=== PATIENT | female | born 1990 | race American Indian/Alaskan Native ===

== ENCOUNTER 2017-01-27 08:19 | Outpatient (CLI) | payer MEDICAID ==
[2017-01-27] MEDS ORDERED: LACTATED RINGERS 500 ML IV ONE (08:36)
[2017-01-27 08:44] VITALS: BP 112/74
[2017-01-27 08:50] LABS: Bacteria,Urine 1+ /HPF (Negative); Bilirubin,Urine NEG (Negative); Blood,Urine NEG (Negative); Ketones,Urine NEG (Negative); Leukocyte Esterase,Urine SM (Negative); Nitrite,Urine NEG (Negative); Protein,Urine <15 mg/dL mg/dL (Negative); Urobilinogen,Urine < 2.0 mg/dL (<2.0)
== END 2017-01-27 09:40 | disposition home or self-care (01) ==
LOC: TRG 08:19
PROVIDERS: ATTEND Obstetrics & Gynecology
DX: O47.03 False labor before 37 completed weeks of gestation, third trimester (principal); Z3A.36 36 weeks gestation of pregnancy
CPT/HCPCS: 81001

== ENCOUNTER 2017-02-10 00:25 | Inpatient (IN) | payer MEDICAID ==
[2017-02-10] MEDS ORDERED: ZOFRAN IV PRN (01:20)
[2017-02-10] MEDS ORDERED: SUBLIMAZE IV PRN (01:20)
[2017-02-10] MEDS ORDERED: BRETHINE SUB-Q PRN (01:20)
[2017-02-10] MEDS ORDERED: POLYCILLIN/NS 2 GM/100 ML 2 GM/100 ML BAG IV ONE (01:20)
[2017-02-10] MEDS ORDERED: XYLOCAINE 2% INFILTRATI ONE (01:20)
[2017-02-10] MEDS ORDERED: MINERAL OIL PO PRN (01:20)
[2017-02-10] MEDS ORDERED: ePHEDrine SULFATE IV PRN ×2 (01:20→03:21)
--- NOTE | 2017-02-10 01:27 | History and Physical Report ---
History of Present Illness Date of examination: 02/10/17 (pt arrived to Triage in active labor) History of present illness: EDC Calculations LMP: 02/18/2017 EDC Confirmation: 02/18/2017 Gestational Age: 6 5/7 weeks Past History : 2 Term Births: 1 Premature Births: 0 Living Children: 1 Para: 1 Elect. Ab: 0 Spont. 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 of genital herpes: no Partner hx. of genital herpes: no Rash, Viral, or Febrile illness since last LMP? no Varicella/Chicken Pox Status: Unknown TB Risk: no Genetic History Congenital Heart Defect: Mom: no Dad: no Vilma Disease: Mom: no Dad: no Thalassemia Mom: no Dad: no Neural Tube Defect Mom: no Dad: no Down's Syndrome Mom: no Dad: no Thomas-Sachs Mom: no Dad: no Sickle Cell Disease/Trait Mom: no Dad: no Hemophilia Mom: no Dad: no Muscular Dystrophy Mom: no Dad: no Cystic Fibrosis Mom: no Dad: no [place] Chorea Mom: no Dad: no Mental Retardation Mom: no Dad: no Fragile X Mom: no Dad: no Other Genetic/Chromosomal Disorder Mom: no Dad: no Child w/other defect Mom: no Dad: no Enviromental Exposures Xray Exposure: no Medication, drug, or alcohol use since LMP: no Chemical/Other Exposure: no Exposure to Cat Liter: no Hx of Parvovirus (Fifth Disease): no Occupational Exposure to Children: none Active Medications: TRI-SPRINTEC 0.18/0.215/0.25 MG-35 MCG TABS (NORGESTIM-ETH ESTRAD TRIPHASIC) 1 tab po q day Current Allergies: No known allergies Laboratory Results Date/Time Collected: 06/30/2016 Routine Urinalysis Leukocytes: negative Nitrite: negative Urobilinogen: negative Protein: Negative Blood: negative Ketone: negative Bilirubin: negative Glucose: Negative Urine HCG: positive Review of Systems General Denies fever, chills, sweats, anorexia, fatigue, weakness, malaise, weight loss and sleep disorder. Denies nausea, vomiting, headache, swelling of legs, abdominal pain, vaginal discharge, vaginal bleeding and contractions. Denies vaginal discharge, incontinence, dysuria, hematuria, urinary frequency, amenorrhea, menorrhagia, abnormal vaginal bleeding, pelvic pain, genital sores, decreased libido, painful periods, painful sex, urinary urgency, hot flashes, vaginal dryness, vaginal itching and vaginal odor. CV Denies chest pains, palpitations, syncope, dyspnea on exertion, orthopnea, PND and peripheral edema. Resp Denies cough, dyspnea at rest, excessive sputum, hemoptysis, wheezing and pleurisy. GI Denies nausea, vomiting, diarrhea, constipation, change in bowel habits, abdominal pain, melena, hematochezia, jaundice, gas/bloating, indigestion/ heartburn, dysphagia and odynophagia. Endo Denies cold intolerance, heat intolerance, polydipsia, polyphagia, polyuria and unusual weight change. Breast Denies left breast lump, right breast lump, nipple discharge, bloody discharge from nipple, breast pain, abnormal mammogram and breast enlargement. MS Denies back pain, joint pain, joint swelling, muscle cramps, muscle weakness, stiffness, arthritis, sciatica, restless legs, leg pain at night and leg pain with exertion. Derm Denies rash, itching, dryness and suspicious lesions. Neuro Denies paralysis, paresthesias, headache, seizures, tremors, vertigo, transient blindness, frequent falls, frequent headaches and difficulty walking. Psych Denies depression, anxiety, irritability and mood swings. Eyes Denies blurring, diplopia, irritation, discharge, vision loss, eye pain and photophobia. ENT Denies earache, ear discharge, tinnitus, decreased hearing, nasal congestion, nosebleeds, sore throat and hoarseness. Allergy Denies urticaria, allergic rash, hay fever and recurrent infections. Heme Denies abnormal bruising, bleeding and enlarged lymph nodes. Past History - Obstetrical History Expected Date of Delivery: 02/18/17 Actual Gestation: 38 Week(s) 6 Day(s) : 2 Para: 1 Number of Living Children: 1 Medications and Allergies Allergies Allergy/AdvReac Type Severity Reaction Status Date / Time peanut Allergy Severe Shortness Verified 01/27/17 08:36 of Breath Home Medications Medication Instructions Recorded Confirmed Last Taken Type Vit-Fe Fumar-FA [ 1 tab PO QDAY 02/10/17 02/10/17 02/09/17 History Vitamin] valACYclovir [Valtrex] 500 mg PO QDAY 02/10/17 02/10/17 02/09/17 History - Vital Signs Vital signs: Vital Signs Temp Resp 97.7 F 18 02/10/17 00:38 02/10/17 00:38 Temp Pulse Resp BP Pulse Ox 97.7 F 88 18 134/86 100 02/10/17 00:38 02/10/17 00:56 02/10/17 00:38 02/10/17 00:41 02/10/17 00:56 - Physical Exam Breasts: Positive: deferred Cardiovascular: Regular rate, Normal S1, Normal S2 Lungs: Positive: Normal air movement Abdomen: Positive: normal appearance, soft, normal bowel sounds. Negative: distention, tenderness Genitourinary (Female): Positive: normal external genitalia Vulva: both: normal Vagina: Positive: normal moisture. Negative: discharge Cervix: Negative: lesion, discharge Uterus: Positive: normal size, normal contour Adnexa: both: normal Anus/Rectum: Positive: normal perianal skin, heme negative. Negative: rectal mass, hemorrhoids Extremities: Positive: normal Deep Tendon Reflex Grade: Normal +2 - Obstetrical FHR: category 1 Uterine Contraction Monitor Mode: External Cervical Dilatation: 4.5 Cervical Effacement Percentage: 70 station: -3 Uterine Contraction Pattern: Regular Uterine Contraction Intensity: Moderate Results All other labs normal. Chlamydia trachomatis, GIACOMO Negative Negative *1 Neisseria gonorrhoeae, GIACOMO Negative Negative *2 Tests: (2) Strep Gp B GIACOMO (882617) ! Strep Gp B GIACOMO [A] Positive HBsAg Screen Negative Negative *1 Rubella Antibodies, IgG 5.23 index Immune >0.99 *2 Non-immune <0.90 Equivocal 0.90 - 0.99 Immune >0.99 ABO Grouping O *3 Rh Factor Positive *4 Please note: Prior records for this patient's ABO / Rh type are not available for additional verification. Antibody Screen Negative Negative *5 RPR Non Reactive Non Reactive *6 WBC 5.6 x10E3/uL 3.4-10.8 *7 RBC 4.07 x10E6/uL 3.77-5.28 *8 Hemoglobin 11.2 g/dL 11.1-15.9 *9 Hematocrit 35.7 % 34.0-46.6 *10 MCV 88 fL 79-97 *11 MCH 27.5 pg 26.6-33.0 *12 MCHC [L] 31.4 g/dL 31.5-35.7 *13 RDW 13.8 % 12.3-15.4 *14 Platelets 298 x10E3/uL 150-379 *15 Neutrophils 61 % *16 Lymphs 30 % *17 Monocytes 8 % *18 Eos 1 % *19 Basos 0 % *20 ! Immature Cells <No Reported Value> *21 Neutrophils (Absolute) 3.4 x10E3/uL 1.4-7.0 *22 Lymphs (Absolute) 1.7 x10E3/uL 0.7-3.1 *23 Monocytes(Absolute) 0.5 x10E3/uL 0.1-0.9 *24 Eos (Absolute) 0.0 x10E3/uL 0.0-0.4 *25 Baso (Absolute) 0.0 x10E3/uL 0.0-0.2 *26 ! Immature Granulocytes 0 % *27 ! Immature Grans (Abs) 0.0 x10E3/uL 0.0-0.1 *28 ! NRBC <No Reported Value> *29 Hematology Comments: <No Reported Value> *30 Tests: (3) HB Solu + Rflx Fra (695648) Hemoglobin (Hgb) Solubility Negative Negative *33 Tests: (4) Panel 073275 ([id number]) HIV Screen 4th Generation wRfx Non Reactive Non Reactive *34 Tests: (5) HCV Ab w/Rflx to Verification ([id number]) ! HCV Ab <0.1 s/co ratio 0.0-0.9 *35 Tests: (6) Comment: ([id number]) ! Comment: SPRCS *36 Non reactive HCV antibody screen is consistent with no HCV infection, unless recent infection is suspected or other evidence exists to indicate HCV infection. Assessment and Plan 26yo @ 38 weeks in active labor GBS+ Orders in EMR Anticipate delivery Pt states she did take her Valtrex this AM. No evidence of an outbreak at this time.
[2017-02-10 01:33] LABS: Hematocrit 32.6 % (30.3-42.9); Hemoglobin 10.5 gm/dl (10.1-14.3); Mean Corpuscular HGB Conc 32 % (30-34); Mean Corpuscular Hemoglobin 29 pg (28-32); Mean Corpuscular Volume 90 fl (79-97); Platelet Count 245 K/mm3 (140-440); Red Blood Count 3.63 M/mm3 (3.65-5.03); White Blood Count 8.4 K/mm3 (4.5-11.0)
[2017-02-10] MEDS ORDERED: PITOCin/NS 30 UNIT/500ML 30 UNITS/500 ML BAG IV SCH (02:00)
[2017-02-10] MEDS ORDERED: LACTATED RINGERS 1,000 ML IV SCH (02:00)
[2017-02-10] MEDS ORDERED: PITOCin/NS 20 UNIT/1000ML DRIP 20 UNITS/1,000 ML BAG IV SCH (02:00)
[2017-02-10] MEDS ORDERED: ePHEDrine SULFATE ONE (02:40)
[2017-02-10] MEDS ORDERED: NARCAN 2 MG/2 ML IV PRN (03:21)
--- NOTE | 2017-02-10 03:21 | Anesthesia Consultation ---
Anesthesia Consult and Med Hx Date of service: 02/10/17 - Airway Anesthetic Teeth Evaluation: Good ROM Head & Neck: Adequate Mental/Hyoid Distance: Adequate Mallampati Class: Class II Intubation Access Assessment: Good - Pulmonary Exam CTA: Yes - Cardiac Exam Cardiac Exam: No Murmur - Pre-Operative Health Status ASA Pre-Surgery Classification: ASA2 Proposed Anesthetic Plan: Epidural - Pulmonary Hx Asthma: No COPD: No Hx Pneumonia: No - Cardiovascular System Hx Hypertension: No - Central Nervous System Hx Seizures: No Hx Psychiatric Problems: No - Endocrine Hx Renal Disease: No Hx End Stage Renal Disease: No Hx Hypothyroidism: No Hx Hyperthyroidism: No - Hematic Hx Anemia: No Hx Sickle Cell Disease: No - Other Systems Hx Alcohol Use: No
--- NOTE | 2017-02-10 03:43 | Progress Note ---
Assessment and Plan Pt w/o complaint Comfortable with epidural SVE 8-9,100,-1 SROM clear fluid Anticipate delivery Subjective - Subjective Date of service: 02/10/17 (pt comfortable with epidural) Interval history: EDC Calculations LMP: 02/18/2017 EDC Confirmation: 02/18/2017 Gestational Age: 6 5/7 weeks Past History : 2 Term Births: 1 Premature Births: 0 Living Children: 1 Para: 1 Elect. Ab: 0 Spont. 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 of genital herpes: no Partner hx. of genital herpes: no Rash, Viral, or Febrile illness since last LMP? no Varicella/Chicken Pox Status: Unknown TB Risk: no Genetic History Congenital Heart Defect: Mom: no Dad: no Vilma Disease: Mom: no Dad: no Thalassemia Mom: no Dad: no Neural Tube Defect Mom: no Dad: no Down's Syndrome Mom: no Dad: no Thomas-Sachs Mom: no Dad: no Sickle Cell Disease/Trait Mom: no Dad: no Hemophilia Mom: no Dad: no Muscular Dystrophy Mom: no Dad: no Cystic Fibrosis Mom: no Dad: no [place] Chorea Mom: no Dad: no Mental Retardation Mom: no Dad: no Fragile X Mom: no Dad: no Other Genetic/Chromosomal Disorder Mom: no Dad: no Child w/other defect Mom: no Dad: no Enviromental Exposures Xray Exposure: no Medication, drug, or alcohol use since LMP: no Chemical/Other Exposure: no Exposure to Cat Liter: no Hx of Parvovirus (Fifth Disease): no Occupational Exposure to Children: none Active Medications: TRI-SPRINTEC 0.18/0.215/0.25 MG-35 MCG TABS (NORGESTIM-ETH ESTRAD TRIPHASIC) 1 tab po q day Current Allergies: No known allergies Laboratory Results Date/Time Collected: 06/30/2016 Routine Urinalysis Leukocytes: negative Nitrite: negative Urobilinogen: negative Protein: Negative Blood: negative Ketone: negative Bilirubin: negative Glucose: Negative Urine HCG: positive Review of Systems General Denies fever, chills, sweats, anorexia, fatigue, weakness, malaise, weight loss and sleep disorder. Denies nausea, vomiting, headache, swelling of legs, abdominal pain, vaginal discharge, vaginal bleeding and contractions. Denies vaginal discharge, incontinence, dysuria, hematuria, urinary frequency, amenorrhea, menorrhagia, abnormal vaginal bleeding, pelvic pain, genital sores, decreased libido, painful periods, painful sex, urinary urgency, hot flashes, vaginal dryness, vaginal itching and vaginal odor. CV Denies chest pains, palpitations, syncope, dyspnea on exertion, orthopnea, PND and peripheral edema. Resp Denies cough, dyspnea at rest, excessive sputum, hemoptysis, wheezing and pleurisy. GI Denies nausea, vomiting, diarrhea, constipation, change in bowel habits, abdominal pain, melena, hematochezia, jaundice, gas/bloating, indigestion/ heartburn, dysphagia and odynophagia. Endo Denies cold intolerance, heat intolerance, polydipsia, polyphagia, polyuria and unusual weight change. Breast Denies left breast lump, right breast lump, nipple discharge, bloody discharge from nipple, breast pain, abnormal mammogram and breast enlargement. MS Denies back pain, joint pain, joint swelling, muscle cramps, muscle weakness, stiffness, arthritis, sciatica, restless legs, leg pain at night and leg pain with exertion. Derm Denies rash, itching, dryness and suspicious lesions. Neuro Denies paralysis, paresthesias, headache, seizures, tremors, vertigo, transient blindness, frequent falls, frequent headaches and difficulty walking. Psych Denies depression, anxiety, irritability and mood swings. Eyes Denies blurring, diplopia, irritation, discharge, vision loss, eye pain and photophobia. ENT Denies earache, ear discharge, tinnitus, decreased hearing, nasal congestion, nosebleeds, sore throat and hoarseness. Allergy Denies urticaria, allergic rash, hay fever and recurrent infections. Heme Denies abnormal bruising, bleeding and enlarged lymph nodes. Patient reports: movement normal Objective - Vital Signs Vital Signs: Vital Signs - 12hr 02/10/17 02/10/17 02/10/17 00:38 00:41 00:46 Temperature 97.7 F Pulse Rate 76 81 Respiratory 18 Rate Blood Pressure 134/86 O2 Sat by Pulse 100 99 Oximetry 02/10/17 02/10/17 02/10/17 00:51 00:56 01:41 Temperature 97.8 F Pulse Rate 85 88 Respiratory 20 Rate Blood Pressure O2 Sat by Pulse 99 100 Oximetry 02/10/17 02/10/17 02/10/17 01:48 02:44 02:49 Temperature Pulse Rate 80 89 Respiratory 22 Rate Blood Pressure O2 Sat by Pulse 98 97 Oximetry 02/10/17 02/10/17 02/10/17 02:54 02:59 03:04 Temperature Pulse Rate 90 80 83 Respiratory Rate Blood Pressure O2 Sat by Pulse 100 100 100 Oximetry 02/10/17 02/10/17 02/10/17 03:09 03:11 03:12 Temperature Pulse Rate 81 53 L 81 Respiratory Rate Blood Pressure 136/74 O2 Sat by Pulse 100 80 L Oximetry 02/10/17 02/10/17 02/10/17 03:14 03:17 03:18 Temperature Pulse Rate 85 89 90 Respiratory Rate Blood Pressure 129/72 143/78 132/75 O2 Sat by Pulse 99 Oximetry 02/10/17 02/10/17 02/10/17 03:19 03:21 03:24 Temperature Pulse Rate 83 82 80 Respiratory Rate Blood Pressure 129/75 147/81 O2 Sat by Pulse 99 Oximetry - Exam Breasts: deferred Cardiovascular: Regular rate Lungs: Normal air movement Abdomen: Present: normal appearance, soft. Absent: distention, tenderness Uterus: Present: normal FHR: auscultation normal, category 1 Uterine Contraction Monitor Mode: External Cervical Dilatation: 8.5 (SROM clear) Cervical Effacement Percentage: 100 station: -1 Uterine Contraction Pattern: Regular Uterine Contraction Intensity: Moderate Extremities: normal Deep Tendon Reflex Grade: Normal +2 - Labs Labs: Abnormal Labs 02/10/17 01:00 RBC 3.63 L Laboratory Results - last 24 hr 02/10/17 02/10/17 01:00 01:00 WBC 8.4 RBC 3.63 L Hgb 10.5 Hct 32.6 MCV 90 MCH 29 MCHC 32 RDW 14.0 Plt Count 245 Blood Type O POSITIVE Antibody Screen Negative
[2017-02-10] MEDS ORDERED: fentaNYL-BUPIV 2 MCG/ML-0.125% 200 MCG/100 ML BAG EPIDURAL SCH (04:00)
[2017-02-10] MEDS ORDERED: POLYCILLIN/NS 1 GM/50 ML 1 GM/50 ML BAG IV SCH (05:30)
[2017-02-10] MEDS ORDERED: PHENERGAN PO PRN (06:07)
[2017-02-10] MEDS ORDERED: PERCOCET 5/325 PO PRN (06:07)
[2017-02-10] MEDS ORDERED: BENADRYL PO PRN (06:07)
[2017-02-10] MEDS ORDERED: TYLENOL PO PRN (06:07)
[2017-02-10] MEDS ORDERED: TUCKS PAD TP PRN (06:07)
[2017-02-10] MEDS ORDERED: MILK OF MAGNESIA PO PRN (06:07)
[2017-02-10] MEDS ORDERED: LANSINOH TP PRN (06:07)
[2017-02-10] MEDS ORDERED: DULCOLAX PR PRN (06:07)
--- NOTE | 2017-02-10 06:19 | Procedure Note ---
OB Delivery Note - Delivery Date of Delivery: 02/10/17 [employer] Sales Representative: SARAH MAN Estimated blood loss: 300cc - Vaginal Delivery presentation: vertex Delivery position: OA Intrapartum events: none Delivery induction: none Delivery augmentation: pitocin Delivery monitor: external FHT, external uterine Route of delivery: Delivery placenta: spontaneous Delivery cord: nuchal cord, 3 umbilical vessels Episiotomy: none Delivery laceration: none Anesthesia: epidural Delivery comments: live born male over intact perineum CAN X 1 delivered through Baby to mom' s abdomen skin to skin Cord blood obtained Placenta and membrane delivered complete and intact, 3 vessel cord Pit IVFs 8/9, EBL 300, wgt 7-0 Mom and baby remain LDR stable. - A at 1 minute: 8 at 5 minutes: 9 Infant Gender: Male (wgt 7-0)
[2017-02-10] MEDS ORDERED: SODIUM CHLORIDE FLUSH SYRINGE 10 ML IV PRN (07:00)
[2017-02-10] MEDS: COLACE PO SCH (10:10)
[2017-02-10] MEDS: PRENATAL VITAMIN PO SCH (10:11)
[2017-02-10] MEDS: MOTRIN PO SCH (10:15)
[2017-02-10] MEDS: NORCO 5/325 PO PRN ×2 (12:36→23:00)
[2017-02-10 17:43] LABS: Hemoglobin 10.3 gm/dl (10.1-14.3)
[2017-02-11] MEDS ORDERED: BOOSTRIX IM ONE (06:00)
--- NOTE | 2017-02-11 08:35 | Progress Note ---
Assessment and Plan patient doing well, no complaints. Lochia scant, VSSAF (b/p 120-130/70's with an outlier of 138/94, denies DAVIS, visual changes or epigastric pain.) H&H 10.3/ 31.0. Patient desires d/c home when infant is cleared for d/c home. Will place discharge in chart. plan for routine f/o in office. - Patient Problems (1) Spontaneous vaginal delivery Current Visit: Yes Status: Acute Subjective - Subjective Date of service: 02/11/17 Principal diagnosis: day #1 s/p Patient reports: appetite normal, voiding normally, pain well controlled, ambulating normally, no dizzy ambulation, no nauseated : doing well, nursing well (breast and bottle) Objective - Vital Signs Latest vital signs: Vital Signs Temp Pulse Resp BP 02/11/17 00:25 98.0 F 88 122/71 02/10/17 16:55 98.2 F 77 18 121/72 02/10/17 12:45 98.1 F 68 18 133/74 Intake and Output 02/10/17 02/11/17 02/11/17 22:59 06:59 14:59 Intake Total 360 480 Output Total 600 Balance -240 480 Intake: Oral 360 480 Output: Urine 600 Void 600 Other: Total, Intake Amount 240 240 Total, Output Amount 600 # Voids Void 1 1 - Exam Breasts: Present: normal, Cardiovascular: Present: Regular rate Lungs: Present: Clear to auscultation, Normal air movement Abdomen: Present: normal appearance, soft, normal bowel sounds Vulva: both: normal Uterus: Present: normal, firm, fundal height at umbilicus Extremities: Present: normal Deep Tendon Reflex Grade: Normal +2
--- NOTE | 2017-02-11 08:38 | Discharge Summary ---
Providers - Providers Date of Admission: 02/10/17 00:59 Date of discharge: 02/11/17 (desires d/c home) Attending physician: NJ RUIZ Primary care physician: NJ RUIZ Hospitalization Reason for admission: active labor Delivery: Episiotomy: none Laceration: none Other procedures: none complications: none Discharge diagnosis: IUP at term delivered baby: male Hospital course: uncomplicated vaginal Condition at discharge: Good Disposition: DC-01 TO HOME OR SELFCARE - Discharge Diagnoses (1) Spontaneous vaginal delivery Status: Acute Plan - Discharge Medications Prescriptions: Ibuprofen [Motrin 800 MG tab] 800 mg PO Q8HR PRN #30 tablet PRN Reason: Pain Lidocain2.5%/Prilocai2.5% [Emla] 5 gm TP ONCE PRN #1 tube PRN Reason: Pain - Provider Discharge Summary Activity: routine, no sex for 6 weeks, no heavy lifting 4 weeks, no strenuous exercise Diet: routine Instructions: routine Additional instructions: [] Smoking cessation referral if applicable(refer to patient education folder for contact #) [] Refer to [facility] Booklet Call your doctor immediately for: * Fever > 100.5 * Heavy vaginal bleeding ( >1 pad per hour) * Severe persistent headache * Shortness of breath * Reddened, hot, painful area to leg or breast * Drainage or odor from incision. * Keep incision clean and dry at all times and follow doctor's instructions regarding bathing/showering - Follow up plan Follow up: NJ RUIZ MD [Primary Care Provider] - 7 Days (Congratulations! Please call [phone] to schedule your son's circumcision in 1 week and your visit in 4 weeks. Bring EMLA cream to your son's appointment and await further instructions. Call for any questions or concerns.)
[2017-02-11] MEDS: MOTRIN PO SCH ×2 (12:30→18:00)
[2017-02-11] MEDS: PRENATAL VITAMIN PO SCH (12:31)
[2017-02-11] MEDS: COLACE PO SCH (22:35)
[2017-02-12] MEDS: MOTRIN PO SCH
[2017-02-12 09:38] VITALS: BP 128/85
== END 2017-02-12 08:40 | disposition home or self-care (01) | DRG 775 ==
LOC: TRG 00:25 → LD 00:59 → OB 07:47
PROVIDERS: ADMIT Obstetrics & Gynecology; ATTEND Obstetrics & Gynecology
PROC: 10E0XZZ Delivery of Products of Conception, External Approach (ICD-10-PCS; principal; 2017-02-10)
PROC: 3E0S3CZ (ICD-10-PCS; 2017-02-10)
PROC: 00HU33Z Insertion of Infusion Device into Spinal Canal, Percutaneous Approach (ICD-10-PCS; 2017-02-10)
PROC: 3E0234Z Introduction of Serum, Toxoid and Vaccine into Muscle, Percutaneous Approach (ICD-10-PCS; 2017-02-10)
DX: O99.824 Streptococcus B carrier state complicating childbirth (principal); O69.81X0 Labor and delivery complicated by cord around neck, without compression, not applicable or unspecified; O42.02 Full-term premature rupture of membranes, onset of labor within 24 hours of rupture; Z3A.38 38 weeks gestation of pregnancy; Z91.010 Allergy to peanuts; Z37.0 Single live birth; Z23 Encounter for immunization
CPT/HCPCS: 36415; 85014; 85018; 85027; 86592; 86850; 86900; 86901; 90471; 99211; A6250; G0463; J0290; J2590; J3010; J7120

== ENCOUNTER 2019-05-12 17:53 | Inpatient (IN) | payer MEDICAID ==
--- NOTE | 2019-05-12 19:30 | History and Physical Report ---
History of Present Illness Date of examination: 05/12/19 Date of admission: 05/12/19 18:25 Chief complaint: Labor History of present illness: Past History : 3 Term Births: 2 Premature Births: 0 Living Children: 2 Para: 2 Mult. Births: 0 Prev : 0 Prev. attempt? 0 Aborta: 0 Elect. Ab: 0 Spont. Ab: 0 Ectopics: 0 # 1 Delivery date: 01/13/2013 Weeks Gestation: 40 Delivery type: Vaginal Hours of labor: 10 Anesthesia type: epidural Delivery location: [facility] Sex: male weight: 7.31 Name: Dom # 2 Delivery date: 02/10/2017 Weeks Gestation: 38.6 Delivery type: Vaginal Anesthesia type: epidural Delivery location: [facility] Infant Sex: male weight: 7 Comments: none Past Medical History: Reviewed history from 05/14/2012 and no changes required: migraines-sees neurologist Past Surgical History: Reviewed history from 06/30/2016 and no changes required: retina and cataracts surgery 2017 Past Medical History 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 of genital herpes: no Partner hx. of genital herpes: no Rash, Viral, or Febrile illness since last LMP? no Varicella/Chicken Pox Status: Immunized TB Risk: no Infection History Comments: HSV2 Genetic History Congenital Heart Defect: Mom: no Dad: no Vilma Disease: Mom: no Dad: no Thalassemia Mom: no Dad: no Neural Tube Defect Mom: no Dad: no Down's Syndrome Mom: no Dad: no Thomas-Sachs Mom: no Dad: no Sickle Cell Disease/Trait Mom: no Dad: no Hemophilia Mom: no Dad: no Muscular Dystrophy Mom: no Dad: no Cystic Fibrosis Mom: no Dad: no [place] Chorea Mom: no Dad: no Mental Retardation Mom: no Dad: no Fragile X Mom: no Dad: no Other Genetic/Chromosomal Disorder Mom: no Dad: no Child w/other defect Mom: no Dad: no Enviromental Exposures Enviromental Exposures Reviewed Xray Exposure: no Medication, drug, or alcohol use since LMP: no Chemical/Other Exposure: no Exposure to Cat Liter: no Hx of Parvovirus (Fifth Disease): no Occupational Exposure to Children: none Active Medications (reviewed today): TERAZOL 7 0.4 % VAGINAL CREAM (TERCONAZOLE) one applicatorful hs x 7 d TERAZOL 7 0.4 % VAGINAL CREAM (TERCONAZOLE) one applicatorful hs x 7 d VALACYCLOVIR HCL 500 MG ORAL TABLET (VALACYCLOVIR HCL) 1 po bid x3days as needed Current Allergies (reviewed today): No known allergies Past History - Obstetrical History Expected Date of Delivery: 05/19/19 Actual Gestation: 39 Week(s) 0 Day(s) : 3 Medications and Allergies Allergies Allergy/AdvReac Type Severity Reaction Status Date / Time peanut Allergy Severe Shortness Verified 01/27/17 08:36 of Breath Home Medications Medication Instructions Recorded Confirmed Last Taken Type Vit-Fe Fumar-FA [ 1 tab PO QDAY 02/10/17 05/12/19 05/12/19 10:00 History Vitamin] 1 valACYclovir [Valtrex] 500 mg PO QDAY 02/10/17 05/12/19 05/12/19 10:00 History Review of Systems All systems: negative Genitourinary: contractions - Vital Signs Vital signs: Vital Signs Pulse BP 88 128/81 05/12/19 18:08 05/12/19 18:08 Temp Pulse Resp BP Pulse Ox 98.4 F 84 14 115/80 05/12/19 18:50 05/12/19 18:50 05/12/19 18:50 05/12/19 18:50 - Physical Exam Breasts: Positive: deferred Lungs: Positive: Normal air movement Abdomen: Positive: soft. Negative: tenderness Genitourinary (Female): Positive: normal external genitalia, normal perenium (no evidence of outbreaks, she denies prodromal symptoms) Extremities: Positive: normal. Negative: tenderness, edema - Obstetrical FHR: category 1 Uterine Contraction Monitor Mode: External Cervical Dilatation: 5 Cervical Effacement Percentage: 60 station: -1 soft, posterior Uterine Contraction Frequency (min): 4 Uterine Contraction Pattern: Regular Results All other labs normal. Assessment and Plan - Patient Problems (1) 39 weeks gestation of Current Visit: Yes Status: Acute (2) Group B streptococcal infection during Current Visit: No Status: Acute (3) Herpes Current Visit: No Status: Acute Plan to address problem: She denies prodromal symptoms and there are no lesions visualized in the genital area. Anticipate vaginal delivery
[2019-05-12] MEDS ORDERED: METHYLERGONOVINE MALEATE 0.2 MG/ML VIAL IM PRN (19:39)
[2019-05-12] MEDS ORDERED: NALOXONE 0.4 MG/1 ML INJ IV PRN (19:39)
[2019-05-12] MEDS ORDERED: ePHEDrine SULFATE 50 MG/1 ML INJ IV PRN ×2 (19:39→22:00)
[2019-05-12] MEDS ORDERED: BUTORPHANOL 2 MG/1 ML INJ IV PRN (19:39)
[2019-05-12] MEDS ORDERED: ONDANSETRON 4 MG/2 ML INJ IV PRN (19:39)
[2019-05-12] MEDS ORDERED: miSOPROStol 200 MCG TAB PR PRN (19:39)
[2019-05-12] MEDS ORDERED: CARBOPROST TROMETHAMINE 250 MCG/1 ML INJ IM PRN (19:39)
[2019-05-12] MEDS ORDERED: MINERAL OIL 30 ML ORAL LIQD PO PRN (19:39)
[2019-05-12] MEDS ORDERED: TERBUTALINE 1 MG/1 ML INJ SUB-Q PRN (19:39)
[2019-05-12] MEDS ORDERED: TERBUTALINE 1 MG/1 ML INJ IVP PRN (19:39)
[2019-05-12] MEDS ORDERED: AMPICILLIN/NS 2 GM/100 ML 2 GM/100 ML BAG IV ONE ×2 (19:54→20:00)
[2019-05-12] MEDS: LACTATED RINGERS 1,000 ML IV SCH ×3 (19:58→23:56)
[2019-05-12] MEDS ORDERED: OXYTOCIN DRIP 30 UNITS/500 ML BAG IV SCH (20:00)
[2019-05-12] MEDS ORDERED: OXYTOCIN 20 UNIT/1000ML DRIP 20 UNITS/1,000 ML BAG IV SCH (20:00)
[2019-05-12] MEDS ORDERED: LIDOCAINE (2%) 20 MG/1 ML VIAL 20 ML MDV INFILTRATI ONE (20:00)
[2019-05-12 20:01] LABS: Hematocrit 32.5 % (30.3-42.9); Mean Corpuscular HGB Conc 34 % (30-34); Mean Corpuscular Volume 89 fl (79-97); Platelet Count 259 K/mm3 (140-440); Red Blood Count 3.65 M/mm3 (3.65-5.03); Red Cell Distribution Width 13.8 % (13.2-15.2)
[2019-05-12] MEDS ORDERED: NALOXONE 2 MG/2 ML INJ IV PRN (22:00)
[2019-05-12] MEDS ORDERED: fentaNYL-BUPIV 2 MCG/ML-0.125% 200 MCG/100 ML BAG EPIDURAL SCH (22:00)
--- NOTE | 2019-05-12 22:06 | Anesthesia Consultation ---
Anesthesia Consult and Med Hx Date of service: 05/12/19 - Airway Anesthetic Teeth Evaluation: Good ROM Head & Neck: Adequate Mental/Hyoid Distance: Adequate Mallampati Class: Class II Intubation Access Assessment: Probably Good - Pulmonary Exam CTA: Yes - Cardiac Exam Cardiac Exam: RRR - Pre-Operative Health Status ASA Pre-Surgery Classification: ASA2 Proposed Anesthetic Plan: Epidural - Pre-Anesthesia Comment Pre-Anesthesia Comments: PSH: CATARACT, RETINA SX - Pulmonary Hx Smoking: No Hx Asthma: No Hx Respiratory Symptoms: No SOB: No COPD: No Home Oxygen Therapy: No Hx Pneumonia: No Hx Sleep Apnea: No - Cardiovascular System Hx Hypertension: No Hx Coronary Artery Disease: No Hx Heart Attack/AMI: No Hx Angina: No Hx Percutaneous Transluminal Coronary Angioplasty (PTCA): No Hx Cardia Arrhythmia: No Hx Pacemaker: No Hx Internal Defibrillator: No Hx Valvular Heart Disease: No Hx Heart Murmur: No Hx Peripheral Vascular Disease: No - Central Nervous System Hx Neuromuscular Disorder: No Hx Seizures: No CVA: No Hx Back Pain: Yes Hx Psychiatric Problems: No - Gastrointestinal Hx Ulcer: No Hx Gastroesophageal Reflux Disease: Yes - Endocrine Hx Renal Disease: No Hx End Stage Renal Disease: No Hx Cirrhosis: No Hx Liver Disease: No Hx Insulin Dependent Diabetes: No Hx Non-Insulin Dependent Diabetes: No Hx Thyroid Disease: No Hx Hypothyroidism: No Hx Hyperthyroidism: No - Hematic Hx Anemia: No Hx Sickle Cell Disease: No - Other Systems Hx Alcohol Use: No Hx Substance Use: No Hx Cancer: No Hx Obesity: Yes (BMI 32.4)
[2019-05-12] MEDS ORDERED: DEXMEDETOMIDINE 200 MCG/2 ML VIAL IV ONE (22:23)
[2019-05-13] MEDS ORDERED: AMPICILLIN/NS 1 GM/50 ML 1 GM/50 ML BAG IV SCH
--- NOTE | 2019-05-13 01:26 | Procedure Note ---
OB Delivery Note - Delivery Date of Delivery: 05/13/19 Surgeon: AYSE DESAI Estimated blood loss: 200cc - Vaginal Delivery presentation: vertex Delivery position: OA Delivery augmentation: pitocin Delivery monitor: external FHT, external uterine Route of delivery: Delivery placenta: spontaneous (intact) Episiotomy: none Delivery laceration: none Anesthesia: epidural - A at 1 minute: 8 at 5 minutes: 9 Gender: Female (6lb 14oz)
[2019-05-13] MEDS ORDERED: IBUPROFEN 800 MG TAB PO PRN (03:59)
[2019-05-13] MEDS ORDERED: PROMETHAZINE 25 MG RECT SUPP PR PRN (05:29)
[2019-05-13] MEDS ORDERED: MAGNESIUM HYDROXIDE (MOM) ORAL LIQD UDC PO PRN (05:29)
[2019-05-13] MEDS ORDERED: PROMETHAZINE 25 MG TAB PO PRN (05:29)
[2019-05-13] MEDS ORDERED: ACETAMINOPHEN 325 MG TAB PO PRN (05:29)
[2019-05-13] MEDS ORDERED: WITCH HAZEL/ GLYCERIN PAD TP PRN (05:29)
[2019-05-13] MEDS ORDERED: IBUPROFEN 600 MG TAB PO SCH (05:29)
[2019-05-13] MEDS ORDERED: diphenhydrAMINE 25 MG CAP PO PRN (05:29)
[2019-05-13] MEDS ORDERED: LANOLIN/ZINC/DIMETHICONE (LANSINOH) 7 GM TP PRN (05:29)
[2019-05-13] MEDS ORDERED: OXYTOCIN 20 UNIT/1000ML DRIP 20 UNITS/1,000 ML BAG IV SCH (05:29)
[2019-05-13] MEDS ORDERED: ONDANSETRON 4 MG/2 ML INJ IV PRN (05:29)
--- NOTE | 2019-05-13 07:58 | Progress Note ---
Assessment and Plan A: 28 y.o. s/p on 05/13/2019, pain well controlled, +Flatus, minimal to moderate lochia, P: Encouraged ambulation Continue with care Subjective - Subjective Date of service: 05/13/19 (Pt s/p ) Patient reports: appetite normal, voiding normally, pain well controlled, ambulating normally : doing well Objective - Vital Signs Latest vital signs: Vital Signs Temp Pulse Resp BP BP Pulse Ox 05/13/19 05:30 97.9 F 70 20 124/82 98 05/13/19 04:50 80 119/80 99 05/13/19 04:45 74 99 05/13/19 04:40 106 H 99 05/13/19 04:35 98 H 99 05/13/19 04:30 86 99 05/13/19 04:25 96 H 99 05/13/19 04:20 85 127/76 100 05/13/19 04:15 90 100 05/13/19 04:10 90 99 05/13/19 04:05 104 H 100 05/13/19 04:00 101 H 100 05/13/19 03:55 81 100 05/13/19 03:50 88 99 05/13/19 03:49 75 121/76 05/13/19 03:45 82 99 05/13/19 03:40 84 100 05/13/19 03:35 90 99 05/13/19 03:30 85 98 05/13/19 03:25 80 99 05/13/19 03:20 71 99 05/13/19 03:15 81 99 05/13/19 03:10 87 99 05/13/19 03:05 86 100 05/13/19 03:00 80 100 05/13/19 02:55 89 100 05/13/19 02:50 76 128/78 100 05/13/19 02:45 85 100 05/13/19 02:40 75 100 05/13/19 02:35 81 100 05/13/19 02:30 81 100 05/13/19 02:25 76 100 05/13/19 02:20 73 138/82 100 05/13/19 02:16 67 147/78 05/13/19 02:15 69 100 05/13/19 02:10 68 100 05/13/19 02:05 70 100 05/13/19 02:02 75 140/65 05/13/19 02:00 90 100 05/13/19 01:55 91 H 100 05/13/19 01:53 91 H 93 05/13/19 01:50 86 100 05/13/19 01:46 78 135/75 05/13/19 01:45 78 100 05/13/19 01:40 75 100 05/13/19 01:35 89 100 05/13/19 01:31 75 129/76 05/13/19 01:30 85 100 05/13/19 01:25 81 100 05/13/19 01:20 78 100 05/13/19 01:16 72 132/74 05/13/19 01:15 72 100 05/13/19 01:10 85 100 05/13/19 01:05 78 100 05/13/19 01:03 98.1 F 72 18 132/76 132/74 100 05/13/19 01:00 84 100 05/13/19 00:55 100 H 100 05/13/19 00:50 77 100 05/13/19 00:46 89 124/72 05/13/19 00:45 95 H 100 05/13/19 00:40 77 100 05/13/19 00:35 94 H 100 05/13/19 00:31 78 131/72 05/13/19 00:30 85 100 05/13/19 00:25 79 100 05/13/19 00:20 73 99 05/13/19 00:17 71 116/63 05/13/19 00:15 77 99 05/13/19 00:10 82 100 05/13/19 00:05 83 100 05/13/19 00:02 80 123/88 05/13/19 00:00 77 100 05/12/19 23:55 74 100 05/12/19 23:50 73 100 05/12/19 23:45 77 100 05/12/19 23:44 71 117/66 05/12/19 23:43 73 113/60 05/12/19 23:41 71 125/70 05/12/19 23:40 71 100 05/12/19 23:39 76 110/70 05/12/19 23:37 72 111/64 05/12/19 23:35 77 119/76 100 05/12/19 23:33 72 116/66 05/12/19 23:30 72 117/74 100 05/12/19 23:25 69 110/64 100 05/12/19 23:22 64 107/62 05/12/19 23:21 71 107/59 05/12/19 23:20 73 100 05/12/19 23:19 71 107/68 05/12/19 23:17 71 116/71 05/12/19 23:15 73 100 05/12/19 23:14 85 112/68 05/12/19 23:11 79 121/66 05/12/19 23:10 83 100 05/12/19 23:05 84 126/70 100 05/12/19 23:03 78 131/76 05/12/19 23:01 79 132/68 05/12/19 23:00 80 100 05/12/19 22:59 71 140/79 05/12/19 22:56 75 125/77 05/12/19 22:55 79 100 05/12/19 22:54 87 124/78 05/12/19 22:52 85 120/78 05/12/19 22:50 86 118/73 100 05/12/19 22:47 87 124/74 05/12/19 22:45 84 99 05/12/19 22:44 88 134/87 05/12/19 22:43 81 75 L 05/12/19 22:42 83 128/77 05/12/19 22:40 85 129/77 100 05/12/19 22:39 80 121/72 05/12/19 22:35 87 100 05/12/19 22:30 88 100 05/12/19 22:25 84 100 05/12/19 22:20 87 98 05/12/19 22:08 108 H 97 05/12/19 22:03 92 H 99 05/12/19 21:58 85 99 05/12/19 21:53 86 97 05/12/19 21:48 92 H 99 05/12/19 21:43 82 98 05/12/19 21:38 82 97 05/12/19 21:33 80 99 05/12/19 21:28 80 100 05/12/19 21:23 82 99 05/12/19 21:18 80 100 05/12/19 21:13 78 100 05/12/19 21:08 79 100 05/12/19 21:03 87 99 05/12/19 21:02 77 115/73 05/12/19 20:51 81 100 05/12/19 20:46 81 99 05/12/19 20:41 87 99 05/12/19 20:36 87 100 05/12/19 20:31 80 100 05/12/19 20:30 98.2 F 77 18 115/73 99 05/12/19 20:26 80 100 05/12/19 20:21 81 100 05/12/19 20:16 88 99 05/12/19 20:11 92 H 100 05/12/19 20:06 86 100 05/12/19 20:01 86 99 05/12/19 19:56 86 100 05/12/19 18:50 98.4 F 84 14 115/80 05/12/19 18:08 88 128/81 Intake and Output 05/12/19 05/13/19 05/13/19 22:59 06:59 14:59 Intake Total 297.917 200.883 Output Total 100 500 Balance 197.917 -299.117 Intake: IV 297.917 200.883 Lactated Ringers 1,000 ml 297.917 197.917 @ 125 mls/hr IV DIRECT KARTHIKEYAN Rx#:[id number] PITOCin/NS 30 UNIT/500ML 2.966 30 units In 500 ml @ 4 mls/hr IV TITR KARTHIKEYAN Rx#: [id number] Output: Urine 100 500 Void 100 500 Other: Total, Output Amount 100 500 Weight 195 lb Estimated Blood Loss 300 - Exam Breasts: Present: deferred Cardiovascular: Present: Regular rate Lungs: Present: Normal air movement Abdomen: Present: normal appearance, soft Vulva: both: normal Extremities: Present: normal Deep Tendon Reflex Grade: Normal +2
[2019-05-13] MEDS: ACETAMINOPHEN 325 MG TAB PO SCH ×4 (09:12→21:44)
[2019-05-13] MEDS ORDERED: FLU VACC QUAD 2019-20 (3 YR UP)/PF 60 MCG/0.5 ML SYRINGE IM ONE (12:00)
[2019-05-13] MEDS: IBUPROFEN 800 MG TAB PO SCH ×2 (12:07→18:04)
[2019-05-13 13:40] LABS: Hematocrit 31.2 % (30.3-42.9); Hemoglobin 10.7 gm/dl (10.1-14.3)
[2019-05-14] MEDS: IBUPROFEN 800 MG TAB PO SCH ×2 (02:14→12:05)
[2019-05-14] MEDS: ACETAMINOPHEN 325 MG TAB PO SCH ×2 (05:53→16:13)
[2019-05-14] MEDS ORDERED: TETANUS,DIPH,PERTUSS(ACELL) VACCINE 0.5 ML SYRINGE IM ONE (06:00)
--- NOTE | 2019-05-14 08:04 | Event Note ---
Date: 05/14/19 patient resting w/o complaints. b/p seem to be trending upward, 130-140/80's most recent. Pt denies DAVIS, visual changes or epigastric pain. Pre-e labs ordered. If NL, will d/c home with 1 week f/u. Pt verbalizes understanding.
[2019-05-14 09:00] LABS: Hematocrit 29.5 % (30.3-42.9); Hemoglobin 9.9 gm/dl (10.1-14.3); Mean Corpuscular HGB Conc 33 % (30-34); Mean Corpuscular Volume 90 fl (79-97); Platelet Count 239 K/mm3 (140-440); Red Cell Distribution Width 14.2 % (13.2-15.2)
[2019-05-14 09:26] LABS: Alanine Aminotransferase 11 units/L (7-56); Uric Acid 4.6 mg/dL (3.5-7.6)
--- NOTE | 2019-05-14 13:26 | Discharge Summary ---
Providers - Providers Date of Admission: 05/12/19 18:25 Date of discharge: 05/14/19 Attending physician: AYSE DESAI 05/13/19 05:29 Consult to Bag Loader [CONS] Routine Reason For Exam: assistance with , SNS Primary care physician: AYSE DESAI Hospitalization Reason for admission: Labor Condition: Good Pertinent studies: H&H 10.7/31.2, pre-e labs NL Procedures: Hospital course: uncomplicated and course Disposition: DC-01 TO HOME OR SELFCARE - Discharge Diagnoses (1) Spontaneous vaginal delivery Status: Acute Core Measure Documentation - Palliative Care Palliative Care/ Comfort Measures: Not Applicable - Core Measures Any of the following diagnoses?: none Exam - Constitutional Vitals: Temp Pulse Resp BP Pulse Ox 98.1 F 71 18 121/81 98 05/14/19 08:27 05/14/19 08:27 05/14/19 08:27 05/14/19 08:27 05/14/19 08:27 - EENT Eyes: Present: PERRL ENT: hearing intact, clear oral mucosa - Neck Neck: Present: supple, normal ROM - Respiratory Respiratory effort: normal - Cardiovascular Rhythm: regular - Extremities Extremities: No edema - Abdominal General gastrointestinal: Present: soft, non-tender - Integumentary Integumentary: Present: clear, warm, dry - Musculoskeletal Musculoskeletal: gait normal, strength equal bilaterally - Psychiatric Psychiatric: appropriate mood/affect, intact judgment & insight - Neurologic Neurologic: CNII-XII intact, moves all extremities - Additional findings Additional findings: lochia scant, fundus firm Plan Activity: no restrictions Diet: regular Follow up with: AYSE DESAI MD [Primary Care Provider] - 7 Days (Congratulations! Please call [phone] to schedule a blood pressure check in 1 week. Call for any changes inyour vision, upper abominal pain or headache.) Forms: [facility] Discharge Summary
[2019-05-14 13:58] LABS: Bilirubin,Urine NEG (Negative); Blood,Urine LG (Negative); Color,Urine Colorless (Yellow); Mucus,Urine FEW /HPF; Protein,Urine <15 mg/dL mg/dL (Negative); Urobilinogen,Urine < 2.0 mg/dL (<2.0)
[2019-05-14 15:29] VITALS: BP 133/89
== END 2019-05-14 15:35 | disposition home or self-care (01) | DRG 774 ==
LOC: TRG 17:53 → LD 18:25 → OB 05-13 05:25
PROVIDERS: ADMIT Obstetrics & Gynecology; ATTEND Obstetrics & Gynecology
PROC: 10E0XZZ Delivery of Products of Conception, External Approach (ICD-10-PCS; principal; 2019-05-13)
PROC: 3E0R3BZ Introduction of Anesthetic Agent into Spinal Canal, Percutaneous Approach (ICD-10-PCS; 2019-05-13)
PROC: 00HU33Z Insertion of Infusion Device into Spinal Canal, Percutaneous Approach (ICD-10-PCS; 2019-05-13)
PROC: 3E0234Z Introduction of Serum, Toxoid and Vaccine into Muscle, Percutaneous Approach (ICD-10-PCS; 2019-05-14)
DX: O99.62 Diseases of the digestive system complicating childbirth (principal); O98.82 Other maternal infectious and parasitic diseases complicating childbirth; K21.9 Gastro-esophageal reflux disease without esophagitis; O99.214 Obesity complicating childbirth; O99.354 Diseases of the nervous system complicating childbirth; G43.909 Migraine, unspecified, not intractable, without status migrainosus; B95.1 Streptococcus, group B, as the cause of diseases classified elsewhere; Z91.010 Allergy to peanuts; Z3A.39 39 weeks gestation of pregnancy; Z37.0 Single live birth; Z23 Encounter for immunization; Z79.899 Other long term (current) drug therapy
CPT/HCPCS: 36415; 81001; 82565; 83615; 84450; 84460; 84550; 85014; 85018; 85027; 86592; 86850; 86900; 86901; 90686; G0378; A6250; J0290; J2210; J2590; J3490; J7120